=== PATIENT | male | born 1960 | race Caucasian/White ===

== ENCOUNTER 2021-08-04 18:38 | Emergency (ER) | payer OTHER ==
[2021-08-04 18:49] VITALS: TEMP 98.5; BMI 25.0
[2021-08-04 20:46] LABS: INR 0.92 (0.83-1.09); PROTHROMBIN TIME (PATIENT) 10.8 SEC (9.7-13.0); URINE APPEARANCE CLEAR; URINE BILIRUBIN NEGATIVE (NEGATIVE); URINE COLOR YELLOW; URINE GLUCOSE (UA) NEGATIVE (NEGATIVE); URINE KETONE NEGATIVE (NEGATIVE); URINE LEUK ESTERASE NEGATIVE (NEGATIVE); URINE NITRITE NEGATIVE (NEGATIVE); URINE PROTEIN NEGATIVE (NEGATIVE); URINE UROBILINOGEN 0.2 mg/dL (0.2-1.0)
[2021-08-04 20:49] LABS: ACTIVATED PTT 18.6 SECONDS (25.2-36.5)
[2021-08-04 21:10] LABS: CHLORIDE 103 mmol/L (98-107); SODIUM 138 mmol/L (136-145)
[2021-08-04 21:12] LABS: CALCIUM 9.7 mg/dL (8.5-10.1)
[2021-08-04 21:13] LABS: ALBUMIN 3.7 g/dl (3.4-5.0); ANION GAP 7 MMOL/L (8-16); BLOOD UREA NITROGEN 16.8 mg/dL (7-18); CO2 27 mmol/L (21-32); GLUCOSE,RANDOM 91 mg/dL (74-106)
[2021-08-04 21:16] LABS: CREATININE 0.9 mg/dL (0.55-1.3); SGOT/AST 30 U/L (15-37); SGPT/ALT 33 U/L (13-61)
[2021-08-04 21:17] LABS: BILIRUBIN,TOTAL 0.8 mg/dL (0.2-1)
[2021-08-04 21:18] LABS: TOT PROT 7.9 g/dl (6.4-8.2)
[2021-08-04 21:19] LABS: ALK PHOS 72 U/L (45-117)
[2021-08-04 21:45] LABS: BASO % 0.4 % (0-2.0); EOS % 1.4 % (0-4.5); HEMOGLOBIN 14.3 GM/dL (11.7-16.9); LYMPH % 13.9 % (8-40); MCH 31.1 pg (25.7-33.7); MEAN CELL VOLUME 91.6 fl (80-96); MEAN PLT VOLUME 7.3 fl (7.5-11.1); MONO % 5.8 % (3.8-10.2); NEUT % 78.5 % (42.8-82.8); PLATELET COUNT 317 10^3/uL (134-434); RBC 4.59 M/mm3 (4.00-5.60); RDW 14.3 % (11.9-15.9); WHITE BLOOD COUNT 12.6 K/mm3 (4.0-10.0)
[2021-08-04 22:24] VITALS: BP 118/79; PULSE 89
== END 2021-08-04 23:42 | disposition home or self-care (01) ==
LOC: JER 18:38
DX: R10.9 Unspecified abdominal pain (principal); R42 Dizziness and giddiness
CPT/HCPCS: 36415; 71045-TC-FY; 74176-TC; 80053; 81003; 82550; 84484; 85025; 85610; 85730; 93005; 93010; 99285-25